=== PATIENT | female | born 1930 | race Caucasian/White ===

== ENCOUNTER → 2016-08-07 | Outpatient (CLI) | payer OTHER | END | disposition home or self-care (01) | LOC: RAD 17:22 | DX: S02.2XXA Fracture of nasal bones, initial encounter for closed fracture (principal); S09.90XA Unspecified injury of head, initial encounter; S00.81XA Abrasion of other part of head, initial encounter; S00.03XA Contusion of scalp, initial encounter; R04.0 Epistaxis; W19.XXXA Unspecified fall, initial encounter; Y93.89 Activity, other specified; Y92.89 Other specified places as the place of occurrence of the external cause; Y99.8 Other external cause status | CPT/HCPCS: 70450; 70486 ==

== ENCOUNTER → 2017-06-01 | Outpatient (CLI) | payer OTHER | END | disposition home or self-care (01) | LOC: CVU 15:45 | PROVIDERS: ATTEND Internal Medicine Cardiovascular Disease | DX: I25.10 Atherosclerotic heart disease of native coronary artery without angina pectoris (principal); I10 Essential (primary) hypertension | CPT/HCPCS: C8929 ==

== ENCOUNTER → 2017-06-05 | Outpatient (CLI) | payer OTHER ==
[~2017-06-05] MED LIST: REGADENOSON 0.4 MG/5 ML SYRINGE ONE
== END | disposition home or self-care (01) ==
LOC: CFH 08:06
PROVIDERS: ATTEND Internal Medicine Cardiovascular Disease
DX: I10 Essential (primary) hypertension (principal); I25.10 Atherosclerotic heart disease of native coronary artery without angina pectoris; R06.02 Shortness of breath
CPT/HCPCS: 78452; 93017; A9502; J2785

== ENCOUNTER 2019-11-12 10:01 | Observation (INO) | payer MEDICARE ==
[~2019-11-12] VITALS: Ht 160 cm; Wt 49.4 kg
[2019-11-12] MEDS ORDERED: TRANEXAMIC ACID 100 MG/ML, 10ML ONE (10:28)
--- NOTE | 2019-11-12 10:40 | NUR ---
Pressure held on laceration. Assisted patient safely from wheel chair to [facility].
--- NOTE | 2019-11-12 10:40 | NUR ---
Please see triage note. Pt sitting on gurney. Son at bedside. Pt alert, laughing, and talking to son. Pt reports pain 2/10. central office technician holding pressure to laceration with 4x4 gauze. Pt denies syncope, loc, nause, vomiting, or dizziness. Pt connected to cardiac catheterization technologist, nibp cuff, and continous pulse ox. NADN. No other needs expressed. Call light within reach.
[2019-11-12 10:55] LABS: BASOPHILS # (AUTO) 0.01 x10^3/uL (0-0.1); BASOPHILS % (AUTO) 0 % (0-1); EOSINOPHILS # (AUTO) 0.06 x10^3/uL (0-0.4); EOSINOPHILS % (AUTO) 1 % (1-7); LYMPHOCYTES # (AUTO) 1.53 x10^3/uL (1-3.4); LYMPHOCYTES % (AUTO) 19 % (22-44); MD NO; MEAN CORPUSCULAR HEMOGLOBIN 31.5 pg (27.0-34.8); MEAN CORPUSCULAR HGB CONC 33.6 g/dL (32.4-35.8); MEAN PLATELET VOLUME 8.3 fL (7.4-10.4); MONOCYTES # (AUTO) 0.56 x10^3/uL (0.2-0.8); MONOCYTES % (AUTO) 7 % (2-9); NEUTROPHILS # (AUTO) 6.04 x10^3/uL (1.8-6.8); NEUTROPHILS % (AUTO) 74 % (42-75); PLATELET COUNT 259 x10^3/uL (130-400); RED BLOOD COUNT 5.02 x10^6/uL (3.82-5.3); RED CELL DISTRIBUTION WIDTH 15.9 % (9.6-15.2)
[2019-11-12 11:02] LABS: INTERNATIONAL NORMALIZED RATIO 0.94 (0.93-1.1)
[2019-11-12] MEDS ORDERED: DIPH,PERTUSS(ACELL),TET VAC/PF 0.5 ML IM-VACC ONE ×2 (11:06→12:00)
--- NOTE | 2019-11-12 11:11 | NUR ---
Pt transported on gurney to CT at this time.
[2019-11-12] MEDS ORDERED: SODIUM CHLORIDE FLUSH 10ML SYR IVF ONE (12:00)
--- NOTE | 2019-11-12 12:35 | NUR ---
BREAK RN. PT RESTING IN BED, NO DISTRESS. PT'S HOB ELEVATED PER REQUEST, OK WITH ER TREVOR NAM. PT'S SON AT BEDSIDE. NO DISTRESS.
[2019-11-12 14:04] LABS: ALBUMIN 3.9 g/dL (3.4-5.0); ANION GAP 8 mmol/L (5-15); CALCIUM 8.9 mg/dL (8.5-10.1); CHLORIDE 110 mmol/L (98-107)
[2019-11-12 14:08] LABS: CREATININE 1.22 mg/dL (0.55-1.02)
[2019-11-12 14:12] LABS: TROPONIN I 0.173 ng/mL (0.000-0.045)
[2019-11-12] MEDS ORDERED: ASPIRIN 81 MG TABLET CHEW ONE (14:43)
[2019-11-12] MEDS ORDERED: ASPIRIN 81 MG TABLET CHEW PO ONE (15:00)
--- NOTE | 2019-11-12 15:35 | NUR ---
Provided report to Shilo Hernandez. All questions answered. Pt ready to transfer to floor after Hospitalist sees pt.
--- NOTE | 2019-11-12 16:54 | NUR ---
Provided bedside report to IFTIKHAR Reina. All questions answered. IFTKIHAR Reina to assume care of pt at this time.
--- NOTE | 2019-11-12 16:58 | NUR ---
RECEIVED REPORT FROM IFTIKHAR ELKINS. TAKING OVER CARE OF PATIENT. PATIENT DENIES PAIN, NO SOB, CALL LIGHT WITHIN REACH, NO FURTHER NEEDS AT THIS TIME.
[2019-11-12] MEDS ORDERED: DOCUSATE 100 MG CAPSULE PO PRN (17:00)
[2019-11-12] MEDS ORDERED: NITROGLYCERIN 0.4 MG/SPRAY SL PRN (17:00)
[2019-11-12] MEDS ORDERED: ONDANSETRON ODT 4 MG PO PRN (17:00)
[2019-11-12] MEDS ORDERED: ONDANSETRON 2MG/ML, 2ML IVPush PRN (17:00)
[2019-11-12] MEDS ORDERED: NITROGLYCERIN 0.4 MG BOTTLE (25 TABS) SL PRN (17:00)
[2019-11-12] MEDS ORDERED: morphine SULFATE 10 MG/ML, 1ML IVPush PRN (17:00)
[2019-11-12] MEDS ORDERED: PHARMACY MAY ADJ FOR RENAL FX MC PRN (17:00)
[2019-11-12] MEDS ORDERED: ACETAMINOPHEN 325 MG TABLET PO PRN (17:00)
[2019-11-12] MEDS ORDERED: CEFTRIAXONE PMX 1GM/50ML 50 ML ONE (17:04)
[2019-11-12] MEDS ORDERED: HEPARIN 5,000 UNITS/ML, 1ML ONE (17:04)
--- NOTE | 2019-11-12 17:05 | NUR ---
THIS TECH CLEANED AND HELD DIRECT PRESSURE TO WOUND
[2019-11-12] MEDS: CEFTRIAXONE PMX 1GM/50ML 50 ML IV SCH (17:08)
[2019-11-12] MEDS: HEPARIN 5,000 UNITS/ML, 1ML SQ SCH (17:08)
[2019-11-12] MEDS: SODIUM CHLORIDE 0.9% 1,000 ML IV SCH (17:08)
--- NOTE | 2019-11-12 17:34 | NUR ---
dairy lab technician in room.
[2019-11-12 17:40] LABS: TROPONIN I 0.161 ng/mL (0.000-0.045)
[2019-11-12] MEDS: DOXYCYCLINE 100 MG in DEXTROSE 5% 250 ML IV SCH (17:56)
--- NOTE | 2019-11-12 18:02 | NUR ---
PATIENT RESTING COMFORTABLY IN BED, IV DOXYCYLCINE 250 mLs/hr HUNG, NO FURTHER NEEDS AT THIS TIME.
--- NOTE | 2019-11-12 19:00 | NUR ---
REPORT RECEIVED FROM IFTIKHAR CHARLES
--- NOTE | 2019-11-12 20:00 | NUR ---
PATIENT TRANSFERED TO HOSPITAL BED TO IMPROVE PATIENT COMFORT. PATIENT TOLERATED WELL. PATIENT UPDATED ON PLAN OF CARE. ORIENTED PATIENT TO CALL LIGHT AND TV REMOTE. VITAL SIGNS ARE STABLE. NO NOTED ACUTE DISTRESS. PATIENT DENIES ANY FURTHER NEEDS AT THIS TIME. CALL LIGHT WITHIN REACH, BED IN LOWEST LOCKED POSITION.
--- NOTE | 2019-11-12 20:40 | NUR ---
REPORT CALLED. NO ADDITIONAL ANSWERS NOTED. PATIENT WILL BE TRANSFERED TO FLOOR IN HOSPTIAL BED.
[2019-11-12 21:47] VITALS: BP 179/82
[2019-11-12] MEDS: HYDROcodone/APAP 5/325 TABLET PO PRN (21:57)
[2019-11-12 23:58] LABS: TROPONIN I 0.161 ng/mL (0.000-0.045)
[2019-11-13 00:44] VITALS: BP 136/76
[2019-11-13] MEDS: SODIUM CHLORIDE 0.9% 1,000 ML IV SCH (00:44)
[2019-11-13] MEDS: HEPARIN 5,000 UNITS/ML, 1ML SQ SCH ×3 (00:44→18:03)
[2019-11-13] MEDS: DOXYCYCLINE 100 MG in DEXTROSE 5% 250 ML IV SCH ×2 (05:38→18:03)
[2019-11-13] MEDS: ASPIRIN 325 MG TABLET PO SCH (05:38)
[2019-11-13 06:08] LABS: ALANINE AMINOTRANSFERASE 20 U/L (12-78); ALBUMIN 3.6 g/dL (3.4-5.0); ALKALINE PHOSPHATASE 74 U/L (45-117); BILIRUBIN,TOTAL 0.9 mg/dL (0.2-1.0); CALCIUM 8.6 mg/dL (8.5-10.1); CREATININE 1.12 mg/dL (0.55-1.02); TOTAL PROTEIN 6.5 g/dL (6.4-8.2)
[2019-11-13] MEDS ORDERED: CLOP75TA PO (06:26)
[2019-11-13] MEDS ORDERED: LEVO88TA4 PO (06:26)
[2019-11-13] MEDS ORDERED: LISI-420 PO (06:26)
[2019-11-13] MEDS ORDERED: AMLO5TAB10 PO (06:26)
[2019-11-13] MEDS ORDERED: RANO500T2 PO (06:26)
[2019-11-13] MEDS ORDERED: ATOR20TA86 PO (06:26)
[2019-11-13 07:16] VITALS: BP 161/80
[2019-11-13 07:25] VITALS: BP 164/84
[2019-11-13 07:30] VITALS: BP 166/84
[2019-11-13 09:11] LABS: ANION GAP 8 mmol/L (5-15); CHLORIDE 113 mmol/L (98-107)
[2019-11-13 13:22] VITALS: BP 115/71
[2019-11-13] MEDS: CEFTRIAXONE PMX 1GM/50ML 50 ML IV SCH (17:16)
[2019-11-13 20:25] VITALS: BP 148/76
[2019-11-13] MEDS: HYDROcodone/APAP 5/325 TABLET PO PRN (22:17)
[2019-11-14 01:21] VITALS: BP 152/81
[2019-11-14] MEDS: HEPARIN 5,000 UNITS/ML, 1ML SQ SCH ×3 (01:26→17:35)
[2019-11-14] MEDS: LEVOTHYROXINE 88 MCG TABLET PO SCH (05:40)
[2019-11-14] MEDS: DOXYCYCLINE 100 MG in DEXTROSE 5% 250 ML IV SCH ×2 (05:40→17:35)
[2019-11-14] MEDS: ASPIRIN 325 MG TABLET PO SCH (05:40)
[2019-11-14 06:40] LABS: ANION GAP 9 mmol/L (5-15); CALCIUM 8.8 mg/dL (8.5-10.1); CHLORIDE 114 mmol/L (98-107)
[2019-11-14 06:44] LABS: CHOL/HDL RATIO 1.5; CHOLESTEROL, TOTAL 147 mg/dL (140-239); CREATININE 0.91 mg/dL (0.55-1.02); HDL CHOL % 65 % (28-40); HDL CHOLESTEROL (DIRECT) 95 mg/dL (40-60); LDL CHOLESTEROL,CALCULATED 34 mg/dL (54-169); LDL/HDL RATIO 0.4 (0.5-3.0); TRIGLYCERIDES 88 mg/dL (50-200); VLDL CHOLESTEROL 18 mg/dL (0-25)
[2019-11-14] MEDS: CLOPIDOGREL 75 MG TABLET PO SCH (07:48)
[2019-11-14] MEDS: ATORVASTATIN 20 MG TABLET PO SCH (07:49)
[2019-11-14] MEDS: AMLODIPINE 5 MG TABLET PO SCH (07:49)
[2019-11-14 08:00] VITALS: BP 159/82
[2019-11-14 12:07] VITALS: BP 145/76
[2019-11-14] MEDS: CEFTRIAXONE PMX 1GM/50ML 50 ML IV SCH (17:35)
[2019-11-14 19:56] VITALS: BP 136/64
[2019-11-15] MEDS: HEPARIN 5,000 UNITS/ML, 1ML SQ SCH ×2 (00:27→08:53)
[2019-11-15 01:31] VITALS: BP 157/86
[2019-11-15] MEDS: DOXYCYCLINE 100 MG in DEXTROSE 5% 250 ML IV SCH (05:21)
[2019-11-15] MEDS: LEVOTHYROXINE 88 MCG TABLET PO SCH (05:21)
[2019-11-15] MEDS: ASPIRIN 325 MG TABLET PO SCH (05:23)
[2019-11-15 06:19] LABS: BASOPHILS # (AUTO) 0.04 x10^3/uL (0-0.1); BASOPHILS % (AUTO) 1 % (0-1); EOSINOPHILS # (AUTO) 0.23 x10^3/uL (0-0.4); EOSINOPHILS % (AUTO) 4 % (1-7); LYMPHOCYTES # (AUTO) 2.23 x10^3/uL (1-3.4); LYMPHOCYTES % (AUTO) 38 % (22-44); MD NO; MEAN CORPUSCULAR HEMOGLOBIN 31.6 pg (27.0-34.8); MEAN CORPUSCULAR HGB CONC 33.5 g/dL (32.4-35.8); MEAN PLATELET VOLUME 8.4 fL (7.4-10.4); MONOCYTES # (AUTO) 0.68 x10^3/uL (0.2-0.8); MONOCYTES % (AUTO) 12 % (2-9); NEUTROPHILS # (AUTO) 2.67 x10^3/uL (1.8-6.8); NEUTROPHILS % (AUTO) 46 % (42-75); PLATELET COUNT 224 x10^3/uL (130-400); RED BLOOD COUNT 4.09 x10^6/uL (3.82-5.3); RED CELL DISTRIBUTION WIDTH 15.2 % (9.6-15.2)
[2019-11-15 06:28] LABS: ANION GAP 8 mmol/L (5-15); CALCIUM 9.2 mg/dL (8.5-10.1); CHLORIDE 112 mmol/L (98-107); CREATININE 0.97 mg/dL (0.55-1.02)
[2019-11-15 08:00] VITALS: BP 145/79
[2019-11-15] MEDS: AMLODIPINE 5 MG TABLET PO SCH (08:53)
[2019-11-15] MEDS: CLOPIDOGREL 75 MG TABLET PO SCH (08:53)
[2019-11-15] MEDS: ATORVASTATIN 20 MG TABLET PO SCH (08:53)
[2019-11-15] MEDS ORDERED: OMNIPAQUE 350 MG/ML, 75ML BOTTLE ONE (09:54)
[2019-11-15] MEDS ORDERED: LISI5TAB7 PO (11:53)
[2019-11-15 12:55] VITALS: BP 129/70
[2019-11-15] MEDS ORDERED: DOXYCYCLINE 100MG CAP PO SCH (17:00)
[2019-12-16] MEDS ORDERED: LISI5TAB7 PO (10:51)
== END 2019-11-15 15:28 | disposition home health service (06) ==
LOC: ED 12:54 → INTOOBSV 14:35 → EDIP 14:35 → 4WST 21:34
PROVIDERS: ADMIT Hospitalist; ATTEND Hospitalist
DX: R55 Syncope and collapse (principal); S01.01XA Laceration without foreign body of scalp, initial encounter; E86.0 Dehydration; N17.9 Acute kidney failure, unspecified; R79.89 Other specified abnormal findings of blood chemistry; R91.1 Solitary pulmonary nodule; J98.11 Atelectasis; J44.9 Chronic obstructive pulmonary disease, unspecified; W01.198A Fall on same level from slipping, tripping and stumbling with subsequent striking against other object, initial encounter; Y93.89 Activity, other specified; Y92.009 Unspecified place in unspecified non-institutional (private) residence as the place of occurrence of the external cause; Z87.891 Personal history of nicotine dependence; Z79.899 Other long term (current) drug therapy; Z23 Encounter for immunization
CPT/HCPCS: 12001; 36415; 70450; 71045; 71260; 80048; 80053; 80061; 82040; 83735; 84145; 84443; 84484; 85014; 85018; 85025; 85610; 86480; 87040; 87081; 90471; 90715; 93005; 93306; 93880; 96361; 96365; 96366; 96367; 96372; 99291; G0378; J0696; J1644; J7030; J7060; Q9967

== ENCOUNTER → 2019-12-10 | Outpatient (CLI) | payer MEDICARE ==
[~2019-12-10] MED LIST changes: +AMLO5TAB10 PO; +ATOR20TA86 PO; +CLOP75TA PO; +LEVO88TA4 PO; +LISI-420 PO; +LISI5TAB7 PO; +RANO500T2 PO; -REGADENOSON 0.4 MG/5 ML SYRINGE ONE
== END | disposition home or self-care (01) ==
LOC: PETCFH 12:36
PROVIDERS: ATTEND Nurse Practitioner Family
DX: R91.8 Other nonspecific abnormal finding of lung field (principal); K57.30 Diverticulosis of large intestine without perforation or abscess without bleeding
CPT/HCPCS: 78815; A9552

== ENCOUNTER 2019-12-12 09:09 | Outpatient (CLI) | payer MEDICARE ==
[2019-12-16] MEDS ORDERED: LISI5TAB7 PO (10:51)
== END 2019-12-12 23:59 | disposition home or self-care (01) ==
LOC: CFH 09:09
PROVIDERS: ATTEND Internal Medicine
DX: J43.9 Emphysema, unspecified (principal); I25.10 Atherosclerotic heart disease of native coronary artery without angina pectoris; R91.1 Solitary pulmonary nodule
CPT/HCPCS: 71250

== ENCOUNTER → 2019-12-12 | Outpatient (CLI) | payer MEDICARE | END | disposition home or self-care (01) | LOC: STAR 10:50 | PROVIDERS: ATTEND Internal Medicine | DX: Z01.818 Encounter for other preprocedural examination (principal); Z11.59 Encounter for screening for other viral diseases | CPT/HCPCS: 36415; 87635 ==

== ENCOUNTER 2019-12-17 08:39 | Day surgery (SDC) | payer MEDICARE ==
[~2019-12-17] VITALS: Ht 167.6 cm; Wt 49.7 kg
[2019-12-17 09:25] VITALS: BP 151/88
[2019-12-17] MEDS ORDERED: CHLORHEXIDINE 15 ML UDC MM ONE (09:30)
[2019-12-17] MEDS ORDERED: ALBU18HF INH (09:55)
[2019-12-17] MEDS ORDERED: FENTANYL PF 100 MCG/2ML ONE (09:57)
[2019-12-17] MEDS ORDERED: MIDAZOLAM 1 MG/ML, 2ML ONE (09:57)
[2019-12-17] MEDS ORDERED: PROPOFOL 50 ML ONE ×2 (09:58→11:55)
[2019-12-17] MEDS ORDERED: LACTATED RINGERS 1,000 ML IV SCH (10:00)
[2019-12-17] MEDS ORDERED: hydrALAzine 20 MG/ML, 1ML IV PRN (10:30)
[2019-12-17] MEDS ORDERED: HYDROmorphone 1 MG/ML, 1ML INJ IVPush PRN (10:30)
[2019-12-17] MEDS ORDERED: PROMETHAZINE 25 MG/ML, 1ML IVPush PRN (10:30)
[2019-12-17] MEDS ORDERED: ACETAMINOPHEN 325 MG TABLET PO PRN (10:30)
[2019-12-17] MEDS ORDERED: ONDANSETRON 2MG/ML, 2ML IVPush PRN (10:30)
[2019-12-17] MEDS ORDERED: FENTANYL PF 100 MCG/2ML IV PRN (10:30)
[2019-12-17] MEDS ORDERED: LABETALOL 5MG/ML, 20ML IV PRN (10:30)
[2019-12-17] MEDS ORDERED: OXYcodone 5 MG/5 ML ORAL.SOL UDC PO PRN (10:30)
[2019-12-17] MEDS ORDERED: DIPHENHYDRAMINE 50 MG/ML, 1ML IVPush PRN (10:30)
[2019-12-17] MEDS ORDERED: ONDANSETRON 2MG/ML, 2ML ONE (11:09)
[2019-12-17] MEDS ORDERED: SUGAMMADEX 200 MG/2 ML IVPush ONE (11:09)
[2019-12-17] MEDS ORDERED: ROCURONIUM 10 MG/ML,10ML ONE (11:09)
== END 2019-12-17 15:15 | disposition home or self-care (01) ==
LOC: OUT 08:39 → EDSTATUS 11:00 → OUT 15:15
PROVIDERS: ATTEND Internal Medicine
DX: R91.8 Other nonspecific abnormal finding of lung field (principal); E11.22 Type 2 diabetes mellitus with diabetic chronic kidney disease; I12.9 Hypertensive chronic kidney disease with stage 1 through stage 4 chronic kidney disease, or unspecified chronic kidney disease; N18.9 Chronic kidney disease, unspecified; I25.10 Atherosclerotic heart disease of native coronary artery without angina pectoris; I27.20 Pulmonary hypertension, unspecified; E78.5 Hyperlipidemia, unspecified; M79.7 Fibromyalgia; F41.9 Anxiety disorder, unspecified; J44.9 Chronic obstructive pulmonary disease, unspecified; I25.2 Old myocardial infarction; E03.9 Hypothyroidism, unspecified; Z79.890 Hormone replacement therapy; Z79.899 Other long term (current) drug therapy; Z95.5 Presence of coronary angioplasty implant and graft
CPT/HCPCS: 31624; 31627; 31628; 71045; 87015; 87070; 87102; 87116; 87205; 87206; 88112; 88172; 88173; 88177; 88305; J2250; J2405; J2704; J3010; 31625; 31629; 76000; 88333

== ENCOUNTER → 2020-02-12 | Outpatient (CLI) | payer MEDICARE ==
[~2020-02-12] MED LIST changes: +ALBU18HF INH
== END | disposition home or self-care (01) ==
LOC: CFH 07:22
PROVIDERS: ATTEND Internal Medicine
DX: R91.8 Other nonspecific abnormal finding of lung field (principal); J43.9 Emphysema, unspecified; N28.1 Cyst of kidney, acquired; R91.1 Solitary pulmonary nodule
CPT/HCPCS: 71250